=== PATIENT | male | born 1995 | race African-American/Black ===

== ENCOUNTER 2016-07-20 07:58 | Emergency (ER) | payer OTHER, BC ==
[~2016-07-20] VITALS: Ht 188 cm; Wt 95.5 kg
[2016-07-20] MEDS ORDERED: PREDNISONE 20MG TABLET PO ONE (09:45)
[2016-07-20] MEDS ORDERED: KETOROLAC 60MG/2ML VIAL IM ONE (09:45)
[2016-07-20 09:52] VITALS: BP 139/86
== END 2016-07-20 11:04 | disposition home or self-care (01) ==
LOC: ER 08:59
DX: J02.9 Acute pharyngitis, unspecified (principal); F17.210 Nicotine dependence, cigarettes, uncomplicated
CPT/HCPCS: 71020; 96372; 99284; J1885; J7512